=== PATIENT | male | born 2000 | race African-American/Black ===

== ENCOUNTER → 2019-02-26 | Outpatient (CLI) | payer BC ==
--- NOTE | 2019-02-27 14:12 | RADIOLOGY REPORT (SQ) ---
EXAM DESCRIPTION: MRI RT UPPER JOINT WITHOUT COMPLETED DATE/TIME: 02/26/2019 7:46 pm REASON FOR STUDY: (M25.311)OTHER INSTABILITY, RIGHT SHOULDER M25.311 OTHER INSTABILITY, RIGHT SHOUL CLIFF COMPARISON: None. TECHNIQUE: Right shoulder images acquired and stored on PACS. Multiplanar imaging to include fat sen sitive sequences such as T1, water sensitive sequences such as FST2/STIR, cartilage sensitive sequenc es such as FSPD/gradient-echo sequences. LIMITATIONS: Motion artifact. FINDINGS: BONE MARROW AND CORTEX: Defect in the posterolateral humeral head at level of coracoid. A djacent mild subchondral edema hand subchondral cyst formation. JOINT OR BURSAL EFFUSION: No significant joint or bursal fluid. No suggestion of loose bodies. GLENO-HUMERAL ARTICULATION: Intact. ACROMION AND AC JOINT: Type 2 acromion. No down-sloping or distal spur. Sub-acromial space maintain ed. No significant AC joint arthropathy. ROTATOR CUFF AND INTERVAL: No significant tear or signal alteration. No cuff muscle atrophy. No rotator interval tear. No rotator interval thickening to suggest adhesive capsulitis. LABRUM AND BICEPS LABRAL COMPLEX: Intact as visualized. REMAINDER OF LABRUM AND IGHL : The anterior inferior labrum is abnormal. Difficult to determine if B ankart lesion versus ALPSA lesion due to the amount of motion and lack of joint distention. PERIARTICULAR AND ADJACENT SOFT TISSUES: No masses or abnormal nodes. OTHER: No other significant finding. IMPRESSION: Technical limitations due to motion. Hill-Sachs lesion consistent with prior anterior d islocation. Bankart lesion versus ALPSA lesion. TECHNICAL DOCUMENTATION: JOB ID: [id number] [employer]- All Rights Reserved Reading location - IP/workstation name: [email or web address]
== END ==
LOC: RAD 18:34
PROVIDERS: ATTEND Orthopaedic Surgery
DX: M25.311 Other instability, right shoulder (principal)

== ENCOUNTER → 2019-03-13 | Outpatient (CLI) | payer BC ==
--- NOTE | 2019-03-13 11:01 | RADIOLOGY REPORT (SQ) ---
EXAM DESCRIPTION: CT RT UPPER EXTREMITY WITHOUT COMPLETED DATE/TIME: 03/13/2019 9:55 am REASON FOR STUDY: FRACTURE OF UPPER RIGHT HUMERUS S42.201A UNSP FRACTURE OF UPPER END OF RIGHT GURPREET GONZALEZ, INIT COMPARISON: 02/26/2019 MRI. TECHNIQUE: Axial imaging performed through the right shoulder with reformatted coronal and sagittal imaging windowed for bone and soft tissues. Images saved to PACS. 3D IMAGING: Were 3D images as MIP, SSD, or volume rendering performed at the work station? No All CT scanners at this facility use dose modulation, iterative reconstruction, and/or weight based d osing when appropriate to reduce radiation dose to as low as reasonably achievable (ALARA). [facility]: Dose Right [facility]: CareDose [facility]: Dose Right [facility]: Teradose 4D [facility]: [employer] LIMITATIONS: None. RADIATION DOSE: CT Rad equipment meets quality standard of care and radiation dose reduction techniq ues were employed. CTDIvol: 12.4 mGy. DLP: 317 mGy-cm. mGy. FINDINGS: SOFT TISSUES: Clear right lung. No axillary adenopathy. BONES: No subluxation or dislocation or evidence of separation. Anterior inferior air glenoid fractu re with slight medial displacement. Fracture fragment measures up to 1.3 cm maximally. Slight impac tion in the posterolateral humeral head, Hill-Sachs deformity. Prominent cysts in the upper anterior humeral head. MINERALIZATION: Normal. OTHER: No other significant finding. IMPRESSION: 1. As seen on MRI, evidence previous anterior shoulder dislocation. Slightly displaced osseous Banka rt fracture. Hill-Sachs impaction fracture with adjacent cystic changes. TECHNICAL DOCUMENTATION: JOB ID: [id number] Quality ID # [id number]: Final reports with documentation of one or more dose reduction techniques (e.g., Au tomated exposure control, adjustment of the mA and/or kV according to patient size, use of iterative reconstruction technique) 2010 [employer]- All Rights Reserved Reading location - IP/workstation name: [email or web address]
== END ==
LOC: RAD 09:14
PROVIDERS: ATTEND Orthopaedic Surgery
DX: S42.291A Other displaced fracture of upper end of right humerus, initial encounter for closed fracture (principal); X58.XXXA Exposure to other specified factors, initial encounter

== ENCOUNTER 2019-03-24 01:17 | Emergency (ER) | payer BC ==
--- NOTE | 2019-03-24 01:57 | RADIOLOGY REPORT (SQ) ---
EXAM DESCRIPTION: XR SHOULDER 2 OR MORE VIEWS COMPLETED DATE/TME: 03/24/2019 01:34 CLINICAL HISTORY: 18 years, Male, Bone tenderness COMPARISON: None. NUMBER OF VIEWS: Two TECHNIQUE: Two views of the right shoulder LIMITATIONS: None. FINDINGS: Anterior shoulder dislocation. No fracture is identified. The AC joint is intact. Visualized portions of the right lung are clear. IMPRESSION: Anterior shoulder dislocation copyright 2010 [employer]- All Rights Reserved
[2019-03-24] MEDS ORDERED: HYDROMORPHONE HCL INJ/PF 2 MG/ML AMPULE IV ONE (03:35)
[2019-03-24] MEDS ORDERED: ONDANSETRON HCL INJ/PF 4 MG/2 ML SDV IV ONE ×2 (03:35→05:06)
[2019-03-24] MEDS ORDERED: ETOMIDATE INJ/PF 20 MG/10 ML SDV IV ONE (04:05)
[2019-03-24] MEDS ORDERED: ONDANSETRON HCL INJ/PF 4 MG/2 ML SDV ONE (04:39)
--- NOTE | 2019-03-24 05:15 | RADIOLOGY REPORT (SQ) ---
EXAM DESCRIPTION: XR SHOULDER 2 OR MORE VIEWS COMPLETED DATE/TME: 03/24/2019 00:00 CLINICAL HISTORY: 18 years, Male, POST REDUCTION COMPARISON: 03/24/2019 at 1:35 AM NUMBER OF VIEWS: Two TECHNIQUE: Two views of the right shoulder LIMITATIONS: None. FINDINGS: There has been interval reduction of the anterior shoulder dislocation. There is no acute fracture. The AC joint is intact. Visualized portions of the right lung are clear IMPRESSION: Interval reduction of the anterior shoulder dislocation copyright 2010 [employer]- All Rights Reserved
--- NOTE | 2019-03-24 05:44 | ER Document Report ---
Entered by MAULIK JEROME SCRIBE 03/24/19 0318 Acting as scribe for:HOLLY STRAUSS IV, MD ED Extremity Problem, Upper - General Chief Complaint: Shoulder Injury Stated Complaint: RIGHT ARM INJURY Primary Care Provider: ANA CRISTINA OSMAN MD [Primary Care Provider] - Follow up as needed Information source: Patient Notes: This 18 year old male patient presents to the emergency department today with complaints of right shoulder pain. Patient reports having frequent right shoulder dislocations which is what he thinks happened tonight. Patient reports that he was working outside on his car, began to feel warm so he went to take off his jacket and he felt his right shoulder dislocate. Patient has normal sensation and brisk capillary refill distally. TRAVEL OUTSIDE OF THE [place] IN LAST 30 DAYS: No - Related Data Allergies/Adverse Reactions: No Known Allergies Allergy (Unverified 03/24/19 04:22) Past Medical History - General Information source: Patient - Social History Smoking Status: Unknown if Ever Smoked Cigarette use (# per day): No Frequency of alcohol use: None Drug Abuse: None Family History: Reviewed & Not Pertinent Patient has suicidal ideation: No Patient has homicidal ideation: No Traumatic Medical History: Reports: Other - Frequent right shoulder dislocations Review of Systems - Review of Systems Constitutional: No symptoms reported EENT: No symptoms reported Cardiovascular: No symptoms reported Respiratory: No symptoms reported Gastrointestinal: No symptoms reported Genitourinary: No symptoms reported Male Genitourinary: No symptoms reported Musculoskeletal: See HPI, Joint pain - right shoulder, Deformity Skin: No symptoms reported Hematologic/Lymphatic: No symptoms reported Neurological/Psychological: No symptoms reported -: Yes All other systems reviewed and negative Physical Exam - Vital signs Vitals: Temp Pulse Resp BP Pulse Ox 98.1 F 74 16 136/71 H 98 03/24/19 01:22 03/24/19 01:22 03/24/19 01:22 03/24/19 01:22 03/24/19 01:22 - Notes Notes: Physical Exam: General: Alert, appears uncomfortable. HEENT: Normocephalic. Atraumatic. PERRL. Extraocular movements intact. Oropharynx clear. Neck: Supple. Non-tender. Respiratory: No respiratory distress. Clear and equal breath sounds bilaterally. Cardiovascular: Regular rate and rhythm. Abdominal: Normal Inspection. Non-tender. No distension. Normal Bowel Sounds. Back: No gross abnormalities. Extremities: Upper extremities: Obvious deformity of right shoulder, anterior dislocation. Associated tenderness to palpation of the shoulder. Brisk capillary refill distally. Normal sensation distally. Lower extremities: Normal inspection. No edema. Normal ROM. Neurological: Normal cognition. AAOx4. Normal speech. Psychological: Normal affect. Normal Mood. Skin: Warm. Dry. Normal color. Course - Vital Signs Vital signs: Temp Pulse Resp BP Pulse Ox 98.1 F 75 21 151/75 H 100 03/24/19 01:24 03/24/19 05:00 03/24/19 05:00 03/24/19 04:51 03/24/19 05:00 - Diagnostic Test Radiology reviewed: Reports reviewed Procedures - Conscious Sedation Conscious sedation Time started: 04:32 Time completed: 04:45 Consent obtained: Yes Indication: right anterior shoulder dislocation Normal healthy pt.: P1. - ASA Classification Airway Evaluation: Normal anatomy Mallampati Classification: Class 1 Used during procedure: Suction available, IV access obtained, Pulse ox on pt., monitor worker on pt. Medications administered: Etomidate Reversal agents: None I personally performed/intraservice time: Sedation, Procedure, 30 min or less Complications: Yes - pt vomited after shoulder reduction - Joint Reduction/Fracture Care Right Shoulder Time completed: 04:45 Consent obtained: Yes Conscious sedation: Yes Pre-procedure NV exam: Yes Manipulation comment: traction-countertraction Post-procedure NV exam: Yes - nvi Post-reduction x-ray: Joint reduced Reduction attempts: 1 Complications: Yes - pt vomited after shoulder reduction Discharge - Discharge Clinical Impression: Anterior dislocation of right shoulder Condition: Good Disposition: HOME, SELF-CARE Instructions: Oral Narcotic Medication ([facility]), Shoulder Dislocation ([facility]), Sling as Treatment ([facility]) Additional Instructions: Return to the Emergency Department without delay if any worse. FOLLOW UP WITH YOUR ORTHOPEDIC DOCTOR ON 03/26/2019 HOME CARE INSTRUCTIONS & INFORMATION: Thank you for choosing us for your medical needs. We hope you're satisfied with the care you received. After you leave, you must properly care for your problem and, at the same time, observe its progress. Any condition can change. Some illnesses can change rapidly over hours or days. If your condition worsens, return to the Emergency Department or see your physician promptly. ABOUT YOUR X-RAYS AND EKG'S: If you had an EKG or X-rays taken, they have been read by the Emergency Physician. The X-rays and EKG's will also be read by a Radiologist or Manager Of Software Development within 24 hours. If discrepancies are noted, you will be notified by telephone. Please be certain the ED has a correct telephone number & address where you can be reached. Also, realize that some fractures or abnormalities do not show up on initial X-rays. If your symptoms continue, see your physician. ABOUT YOUR LABORATORY TEST: If you had laboratory tests, the results have been reviewed by the Emergency Physician. Some test results (for example cultures) may not be available for several days. You will be contacted if any test result shows you need additional treatment. Please be certain the ED has a correct telephone number and address where you can be reached. ABOUT YOUR MEDICATIONS: You will receive instructions on how to take your medicine on the prescription label you receive. Additional information may be provided by the Pharmacy. If you have questions afterwards, call the ED for clarification or further instructions. Some prescribed medications may cause drowsiness. Do not perform tasks such as driving a car or operating machinery without consulting your Pharmacist. If you feel you need a refill of pain medication, your condition will need re-evaluation. Please do not call for a refill of any medication. ABOUT YOUR SIGNATURE: Signature of this document acknowledges to followin. Understanding that you received emergency treatment and that you may be released before al medical problems are known or treated. Please be certain the ED has a correct phone number & address where you can be reached. 2. Acknowledgement that you will arrange for follow-up care as recommended. 3. Authorization for the Emergency Physician to provide information to your follow-up Physician in order to maximize your care. AT ANY TIME, IF YOUR SYMPTOMS CHANGE SIGNIFICANTLY OR WORSEN OR YOU DEVELOP NEW SYMPTOMS, RETURN TO THE EMERGENCY DEPARTMENT IMMEDIATELY FOR RE-EVALUATION. OUR GOAL IS TO PROVIDE EXCELLENT MEDICAL CARE! WE HOPE THAT WE HAVE MET YOUR EXPECTATIONS DURING YOUR EMERGENCY DEPARTMENT VISIT AND THAT YOU FEEL YOU HAVE RECEIVED EXCELLENT CARE! Prescriptions: Oxycodone HCl/Acetaminophen [Percocet 5-325 mg Tablet] 1 tab PO Q6HP PRN #20 tablet PRN Reason: Referrals: ANA CRISTINA OSMAN MD [Primary Care Provider] - Follow up as needed I personally performed the services described in the documentation, reviewed and edited the documentation which was dictated to the scribe in my presence, and it accurately records my words and actions.
[2019-03-24 06:14] VITALS: BP 126/74
== END 2019-03-24 06:14 | disposition home or self-care (01) ==
LOC: ER 01:17
DX: S43.004A Unspecified dislocation of right shoulder joint, initial encounter (principal); X58.XXXA Exposure to other specified factors, initial encounter
CPT/HCPCS: 96376; 99283; 99152; 96374; 96375; 73030; 23650; L3650; J1170; J2405; J3490

== ENCOUNTER 2019-04-29 13:33 | Emergency (ER) | payer BC, OTHER ==
[2019-04-29] MEDS ORDERED: ONDANSETRON 4 MG TAB.RAPDIS PO ONE (15:00)
--- NOTE | 2019-04-29 15:03 | ER Document Report ---
ED General - General Chief Complaint: Nausea/Vomiting/Diarrhea Stated Complaint: VOMITING/DIAHERRA Time Seen by Provider: 04/29/19 14:52 Primary Care Provider: ANA CRISTINA OSMAN MD [ACTIVE STAFF] - Follow up in 3-5 days Mode of Arrival: Ambulatory Information source: Patient Notes: 18-year-old male presents emergency department with complaints of nausea vomiting diarrhea abdominal pain that started this morning upon waking up. He denies fever. Reports has not been on recent antibiotics. Reports he lives with his girlfriend and she is not ill. He does report that he ate at [employer] yesterday and this only thing she did meet with him. So possibly cookout is bothering him. No recent trips. Patient did not receive the flu vaccine this year. He did take Pepto without relief of symptoms. TRAVEL OUTSIDE OF THE [place] IN LAST 30 DAYS: No - HPI Onset: This morning Quality of pain: Achy Associated symptoms: Diarrhea, Nausea, Vomiting Exacerbated by: Denies Relieved by: Denies Similar symptoms previously: No Recently seen / treated by doctor: No - Related Data Allergies/Adverse Reactions: No Known Allergies Allergy (Verified 04/29/19 14:50) Past Medical History - General Information source: Patient - Social History Smoking Status: Never Smoker Chew tobacco use (# tins/day): No Frequency of alcohol use: None Drug Abuse: None Lives with: Friend Family History: Reviewed & Not Pertinent Patient has suicidal ideation: No Patient has homicidal ideation: No Traumatic Medical History: Reports: Hx Fractures Past Surgical History: Reports: Hx Orthopedic Surgery Review of Systems - Review of Systems Notes: Review HPI for review of systems., All other systems negative Physical Exam - Vital signs Vitals: Temp Pulse Resp BP Pulse Ox 98.1 F 72 20 121/54 L 100 04/29/19 14:23 04/29/19 14:23 04/29/19 14:23 04/29/19 14:23 04/29/19 14:23 - Notes Notes: PHYSICAL EXAMINATION: GENERAL: Well-appearing and in no acute distress HEAD: Atraumatic, normocephalic. EYES: Pupils equal round , extraocular movements intact, sclera anicteric, conjunctiva are normal. ENT: nares patent, Moist mucous membranes. NECK: Normal range of motion, supple without lymphadenopathy LUNGS: CTAB and equal. No wheezes rales or rhonchi. HEART: Regular rate and rhythm without murmurs ABDOMEN: Soft, no tenderness. No guarding, no rebound BACK: Denies tenderness. Denies CVA tenderness EXTREMITIES: Normal range of motion, NEUROLOGICAL: Cranial nerves grossly intact. Normal sensory/motor exams. PSYCH: Normal mood, normal affect. SKIN: Warm, Dry, normal turgor, no rashes or lesions noted Course - Re-evaluation Re-evalutation: 04/29/19 17:36 Labs unremarkable. Patient has not vomited or had diarrhea since arrival. Patient was given p.o. challenge and able to hold the fluids down. he reports he is ready to go home. He looks good. Nontoxic looking. He was prescribed Zofran. He was instructed on clear liquid diet advance as tolerated take Zofran as prescribed. He was also instructed to return for any worsening symptoms return of vomiting diarrhea concerns. He verbalized understanding to all i nstructions. Laboratory 04/29/19 04/29/19 04/29/19 16:00 16:00 16:00 WBC 9.4 RBC 5.47 Hgb 14.9 Hct 44.8 MCV 82 MCH 27.3 MCHC 33.3 RDW 14.5 H Plt Count 219 Lymph % (Auto) Not Reportable Wood % (Auto) Not Reportable Eos % (Auto) Not Reportable Baso % (Auto) Not Reportable Absolute Neuts (auto) Not Reportable Absolute Lymphs (auto) Not Reportable Absolute Monos (auto) Not Reportable Absolute Eos (auto) Not Reportable Absolute Basos (auto) Not Reportable Total Counted 100 Seg Neutrophils % Not Reportable Seg Neuts % (Manual) 96 H Lymphocytes % (Manual) 2 L Monocytes % (Manual) 2 L Eosinophils % (Manual) 0 Basophils % (Manual) 0 Abs Neuts (Manual) 9.0 H Abs Lymphs (Manual) 0.2 L Abs Monocytes (Manual) 0.2 Absolute Eos (Manual) 0.0 Abs Basophils (Manual) 0.0 Toxic Granulation SLIGHT Toxic Vacuolation PRESENT Platelet Comment ADEQUATE Sodium 140.0 Potassium 4.7 Chloride 104 Carbon Dioxide 25 Anion Gap 11 BUN 13 Creatinine 0.68 Est GFR ( Amer) > 60 Est GFR (MDRD) Non-Af > 60 Glucose 95 Calcium 9.9 Total Bilirubin 0.6 Direct Bilirubin 0.2 Neonat Total Bilirubin Not Reportable Neonat Direct Bilirubin Not Reportable Neonat Indirect Bili Not Reportable AST 29 ALT 35 Alkaline Phosphatase 77 Total Protein 7.8 Albumin 4.7 Lipase 27.6 Urine Color Urine Appearance Urine pH Ur Specific [place] Urine Protein Urine Glucose (UA) Urine Ketones Urine Blood Urine Nitrite Urine Bilirubin Urine Urobilinogen Ur Leukocyte Esterase Urine WBC (Auto) Urine RBC (Auto) Squamous Epi Cells Auto Urine Mucus (Auto) Urine Ascorbic Acid Influenza A (Rapid) NEGATIVE Influenza B (Rapid) NEGATIVE 04/29/19 16:00 WBC RBC Hgb Hct MCV MCH MCHC RDW Plt Count Lymph % (Auto) Wood % (Auto) Eos % (Auto) Baso % (Auto) Absolute Neuts (auto) Absolute Lymphs (auto) Absolute Monos (auto) Absolute Eos (auto) Absolute Basos (auto) Total Counted Seg Neutrophils % Seg Neuts % (Manual) Lymphocytes % (Manual) Monocytes % (Manual) Eosinophils % (Manual) Basophils % (Manual) Abs Neuts (Manual) Abs Lymphs (Manual) Abs Monocytes (Manual) Absolute Eos (Manual) Abs Basophils (Manual) Toxic Granulation Toxic Vacuolation Platelet Comment Sodium Potassium Chloride Carbon Dioxide Anion Gap BUN Creatinine Est GFR ( Amer) Est GFR (MDRD) Non-Af Glucose Calcium Total Bilirubin Direct Bilirubin Neonat Total Bilirubin Neonat Direct Bilirubin Neonat Indirect Bili AST ALT Alkaline Phosphatase Total Protein Albumin Lipase Urine Color YELLOW Urine Appearance CLEAR Urine pH 7.0 Ur Specific [place] 1.026 Urine Protein 30 H Urine Glucose (UA) NEGATIVE Urine Ketones NEGATIVE Urine Blood NEGATIVE Urine Nitrite NEGATIVE Urine Bilirubin NEGATIVE Urine Urobilinogen NEGATIVE Ur Leukocyte Esterase TRACE H Urine WBC (Auto) 9 Urine RBC (Auto) 3 Squamous Epi Cells Auto <1 Urine Mucus (Auto) FEW Urine Ascorbic Acid NEGATIVE Influenza A (Rapid) Influenza B (Rapid) 04/29/19 19:02 - Vital Signs Vital signs: Temp Pulse Resp BP Pulse Ox 98 F 70 16 122/62 100 04/29/19 18:14 04/29/19 18:14 04/29/19 18:14 04/29/19 18:14 04/29/19 18:14 - Laboratory Result Diagrams: 04/29/19 16:00 04/29/19 16:00 Laboratory results interpreted by me: 04/29/19 04/29/19 16:00 16:00 RDW 14.5 H Seg Neuts % (Manual) 96 H Lymphocytes % (Manual) 2 L Monocytes % (Manual) 2 L Abs Neuts (Manual) 9.0 H Abs Lymphs (Manual) 0.2 L Urine Protein 30 H Ur Leukocyte Esterase TRACE H Discharge - Discharge Clinical Impression: Nausea vomiting and diarrhea Condition: Stable Disposition: HOME, SELF-CARE Instructions: Antinausea Medication ([facility]), Diarrhea, Nonspecific ([facility]), Vomiting ([facility]) Additional Instructions: *You have been evaluated for nausea/vomiting/diarrhea *Take medication as prescribed *take Over the counter anti-diarrheal as indicated *Ensure adequate fluid intake as discussed to prevent dehydration *Follow up with a primary care provider within one week for recheck *Return to ED for worsening condition, changes, needs Referrals: ANA CRISTINA OSMAN MD [ACTIVE STAFF] - Follow up in 3-5 days
[2019-04-29 16:23] LABS: APPEARANCE,URINE CLEAR; BILIRUBIN,URINE NEGATIVE (NEGATIVE); COLOR,URINE YELLOW; GLUCOSE, URINE NEGATIVE (NEGATIVE); KETONES,URINE NEGATIVE (NEGATIVE); LEUKOCYTE ESTERASE,URINE TRACE (NEGATIVE); NITRITE,URINE NEGATIVE (NEGATIVE); PROTEIN,URINE 30 mg/dL (NEGATIVE); URINE SPECIFIC GRAVITY 1.026; UROBILINOGEN,URINE NEGATIVE mg/dL (<2.0)
[2019-04-29 16:25] LABS: HEMATOCRIT 44.8 % (37.9-51.0); HEMOGLOBIN 14.9 g/dL (13.5-17.0); MEAN CORPUSCULAR HEMOGLOBIN 27.3 pg (27.0-33.4); MEAN CORPUSCULAR HGB CONC 33.3 g/dL (32.0-36.0); MEAN CORPUSCULAR VOLUME 82 fl (80-97); PLATELET COUNT 219 10^3/uL (150-450); RED BLOOD COUNT 5.47 10^6/uL (4.35-5.55); RED CELL DISTRIBUTION WIDTH 14.5 % (11.5-14.0); WHITE BLOOD COUNT 9.4 10^3/uL (4.0-10.5)
[2019-04-29 16:34] LABS: ALBUMIN 4.7 g/dL (3.7-5.6); ALKALINE PHOSPHATASE 77 U/L (65-260); ANION GAP 11 (5-19); ASPARTATE AMINO TRANSFERASE 29 U/L (10-45); BILIRUBIN,DIRECT 0.2 mg/dL (0.0-0.4); BILIRUBIN,TOTAL 0.6 mg/dL (0.2-1.3); BLOOD UREA NITROGEN 13 mg/dL (7-20); CALCIUM 9.9 mg/dL (8.4-10.2); CARBON DIOXIDE 25 mmol/L (22-30); CHLORIDE 104 mmol/L (98-107); GLUCOSE 95 mg/dL (75-110); POTASSIUM 4.7 mmol/L (3.6-5.0); TOTAL PROTEIN 7.8 g/dL (6.3-8.2)
[2019-04-29 16:35] LABS: A TYPE INFLUENZA AG NEGATIVE (NEGATIVE); B INFLUENZA AG NEGATIVE (NEGATIVE)
[2019-04-29 16:51] LABS: ABSOLUTE LYMPHOCYTES# (MANUAL) 0.2 10^3/uL (0.5-4.7); ABSOLUTE MONOCYTES # (MANUAL) 0.2 10^3/uL (0.1-1.4); BASOPHILS % (MANUAL) 0 % (0-2); EOSINOPHILS % (MANUAL) 0 % (0-6); LYMPHOCYTES % (MANUAL) 2 % (13-45); MONOCYTES % (MANUAL) 2 % (3-13); SEGMENTED NEUTROPHILS % (MAN) 96 % (42-78); TOTAL CELLS COUNTED 100
[2019-04-29 16:52] LABS: PLATELET COMMENT ADEQUATE; TOXIC GRANULATION SLIGHT; TOXIC VACUOLATION PRESENT
[2019-04-29] MEDS ORDERED: ONDANSETRON ODT 4 MG TAB (6 TAB/ER DISP) PO PRN (17:37)
[2019-04-29 18:22] VITALS: BP 122/62
== END 2019-04-29 18:14 | disposition home or self-care (01) ==
LOC: ER 13:33
DX: R11.2 Nausea with vomiting, unspecified (principal); R19.7 Diarrhea, unspecified; R10.9 Unspecified abdominal pain
CPT/HCPCS: 99284; 36415; 83690; 85025; 80053; 81001; 87804; S0119